=== PATIENT | male | born 1980 | race Hispanic/Latino ===

== ENCOUNTER 2018-02-22 19:23 | Emergency (ER) | payer OTHER ==
[2018-02-22 19:45] VITALS: BP 109/77; PULSE 74; RESP 16; TEMP 98.2; O2SAT 97
--- NOTE | 2018-02-22 23:09 | ED PDOC ---
Upper Extremity Pain/Injury Time Seen by Provider: 02/22/18 20:27 Chief Complaint (Nursing): Upper Extremity Problem/Injury Chief Complaint (Provider): Left elbow pain after fall History Per: Patient History/Exam Limitations: no limitations Onset/Duration Of Symptoms: Mins Current Symptoms Are (Timing): Still Present Quality: Dull Severity: Moderate Pain Scale Rating Of: 7 Additional Complaint(s): 37 yo male with no medical problems presents for evaluation of left elbow pain after a fall off a motorized skateboard. Pt states he was riding it this evening for fun when it shut off suddenly. Pt states he fell onto the left elbow. Pt reports localized pain. Pt reports being able to move arm after fall but feeling a cracking sensation in elbow. Pt applied ice to arm. Denies numbnes /tingling. Reports left hand feeling cool. Arm with 3 ice packs and dressing. Past Medical History Reviewed: Historical Data, Nursing Documentation, Vital Signs Vital Signs: Last Vital Signs Temp 98.2 F 02/22/18 19:42 Pulse 74 02/22/18 19:42 Resp 16 02/22/18 19:42 BP 109/77 02/22/18 19:42 Pulse Ox 97 02/22/18 19:42 - Medical History PMH: No Chronic Diseases - Surgical History Surgical History: No Surg Hx - Family History Family History: States: No Known Family Hx - Living Arrangements Living Arrangements: With Family - Social History Current smoker - smoking cessation education provided: No - Allergies Allergies/Adverse Reactions: Allergies Allergy/AdvReac Type Severity Reaction Status Date / Time gluten AdvReac VOMITING Verified 02/22/18 19:42 Review of Systems ROS Statement: Except As Marked, All Systems Reviewed And Found Negative Constitutional: Negative for: Fever, Chills Musculoskeletal: Positive for: Other Skin: Positive for: Other (abrasions) Neurological: Negative for: Weakness, Numbness Physical Exam - Reviewed Nursing Documentation Reviewed: Yes Vital Signs Reviewed: Yes - Physical Exam Appears: Positive for: Well, Non-toxic, No Acute Distress Head Exam: Positive for: ATRAUMATIC, NORMAL INSPECTION, NORMOCEPHALIC Skin: Positive for: Normal Color, Warm, DRY Eye Exam: Positive for: Normal appearance ENT: Positive for: Normal ENT Inspection Neck: Positive for: Normal Cardiovascular/Chest: Negative for: Bradycardia, Tachycardia Respiratory: Negative for: Accessory Muscle Use, Respiratory Distress Pulses-Radial (L): 2+ Pulses-Radial (R): 2+ Back: Positive for: Normal Inspection Extremity: Positive for: Capillary Refill (<3 seconds). Negative for: Normal ROM (Right elbow in flexed position - Cracking palpable over elbow, tenderness of the left olecronon), Deformity, Swelling Neurologic/Psych: Positive for: Alert, Oriented - ECG O2 Sat by Pulse Oximetry: 97 Medical Decision Making Medical Decision Making: Discussed with Dr. Chavez who would like patient admitted for surgery tomorrow. Pt states he is seen by [facility] and prefers to be seen at there surgical facility. Dr. Chavez states he may be placed in posterior splint and follow-up. Posterior long arm splint applied by magnetic tape typewriter operator. No neurovascular compromise. Pt has appointment for 8am on 02/24/18. Pt given copy of XR Disposition - Clinical Impression Clinical Impression: Olecranon fracture - Patient ED Disposition Is Patient to be Admitted: No Counseled Patient/Family Regarding: Diagnosis, Need For Followup, Rx Given - Disposition Referrals: [facility] [Outside] Disposition: Routine/Home Disposition Time: 23:09 Condition: GOOD Additional Instructions: Please follow-up with orthopedics. Instructions: Elbow Fracture (DC) Forms: [employer] ([place])
--- NOTE | 2018-02-23 08:51 | RAD ---
Date of service: 02/22/2018 PROCEDURE: Radiographs of the left elbow. HISTORY: left elbow pain, fall, clicking COMPARISON: No prior. FINDINGS: BONES: Per frontal view transverse fracture through the olecranon ; appearing vertical -orthogonal to the long axis of the radius on the lateral view separation of fracture fragments on lateral view approximately a 2 mm. Radial carpal intra-articular joint extension noted. JOINTS: No significant appearing arthrosis. SOFT TISSUES: Normal. JOINT EFFUSION: Present OTHER FINDINGS: None IMPRESSION: Olecranon fracture with intra-articular extension. 2 mm separation of the fractured ends. No further displacement or angulation deformity suggested. Comments: Study marked for PA review .
--- NOTE | 2018-02-23 08:58 | RAD ---
Date of service: 02/22/2018 PROCEDURE: Radiographs of the Left Forearm HISTORY: pain, fall COMPARISON: No comparison left forearm TECHNIQUE: Frontal and lateral views obtained. FINDINGS: BONES: A left radial head neck junctional fracture very slightly impacted without further displacement is noted. These fractures more conspicuous on this left forearm exam than left elbow exam. Also noted on this exam is the left olecranon fracture with intra-articular extension which is also noted on the left elbow exam. JOINT SPACES: Left elbow joint effusion noted no dislocation. OTHER FINDINGS: None. IMPRESSION: Left radial head neck junctional fracture. Left olecranon fracture with intra-articular extension. Comments: Study marked for PA review .
--- NOTE | 2018-02-23 10:58 | RAD ---
Date of service: 02/22/2018 PROCEDURE: Left Wrist Radiographs. HISTORY: pain, fall COMPARISON: None. FINDINGS: BONES: Bone alignment and mineralization are normal. There is no acute displaced fracture or bone destruction. JOINTS: Normal. No dislocation. SOFT TISSUES: Normal. OTHER FINDINGS: None. IMPRESSION: No acute fracture or dislocation.
== END 2018-02-22 23:23 | disposition home or self-care (01) ==
LOC: H.ER 19:23
DX: S52.032A Displaced fracture of olecranon process with intraarticular extension of left ulna, initial encounter for closed fracture (principal); W01.0XXA Fall on same level from slipping, tripping and stumbling without subsequent striking against object, initial encounter; Y92.89 Other specified places as the place of occurrence of the external cause